=== PATIENT | male | born 1985 | race American Indian/Alaskan Native ===

== ENCOUNTER 2021-01-20 20:06 | Emergency (ER) | payer OTHER ==
[2021-01-20] MEDS ORDERED: Lidocaine 1% with EPINEPHrine 1:100,000 10 ML MDV INJECT ONE (21:08)
--- NOTE | 2021-01-20 21:15 | EDM.PDOC ---
ED HPI GENERAL MEDICAL PROBLEM - General Chief Complaint: Skin Complaint Stated Complaint: LARGE CYST ON NECK Time Seen by Provider: 01/20/21 21:04 Source of Information: Reports: Patient, RN Notes Reviewed History Limitations: Reports: No Limitations - History of Present Illness INITIAL COMMENTS - FREE TEXT/NARRATIVE: Patient is a 35-year-old male who presents to the ER for evaluation of a skin abscess. Patient has a history of this large cyst on the posterior aspect of his right neck. States he used to get injections for this, but they stopped some time ago. States that the lesion has continued to grow, this is the largest is never been. He states that he is never had it drained in the past that it is just always popped open and its drain by itself. He states he has a few chills, and some tenderness about the site but no actual fevers, or any sort of swallowing difficulty or any sort of nausea/vomiting/diarrhea. Patient states he was taking some leftover pain pills given to him by his uncle for pain management. Right Posterior Neck Pain Score (Numeric/FACES): 8 - Related Data Allergies Allergy/AdvReac Type Severity Reaction Status Date / Time cephalexin Allergy Hives Verified 01/20/21 20:35 Iodinated Contrast Media Allergy Swelling Verified 01/20/21 20:35 [Iodinated Contrast- Oral and IV Dye] Home Meds: Home Meds LORazepam [Ativan] 0.5 mg PO TID 03/22/18 [History] Sertraline HCl [Zoloft] 50 mg PO BID 03/22/18 [History] Hydrocodone/Acetaminophen [HYDROcodone-Acetaminophen 5-325 MG] 1 each PO Q6H PRN #12 tablet 01/20/21 [Rx] Insulin Regular, Human [NovoLIN R] 1 unit SUBCUT QID 01/20/21 [History] Sulfamethoxazole/Trimethoprim [Bactrim Ds Tablet] 1 each PO BID #14 tablet 01/20/21 [Rx] lisinopriL [Lisinopril] 40 mg PO DAILY 01/20/21 [History] Past Medical History Gastrointestinal History: Reports: Diverticulosis Psychiatric History: Reports: Anxiety, Depression Endocrine/Metabolic History: Reports: Diabetes, Type II Social & Family History - Family History Endocrine/Metabolic: Reports: Diabetes, type II - Caffeine Use Caffeine Use: Reports: Soda Other Caffeine Use: 2-3 sodas a day ED ROS GENERAL - Review of Systems Review Of Systems: Comprehensive ROS is negative, except as noted in HPI. ED EXAM, SKIN/RASH Exam: See Below Exam Limited By: No Limitations General Appearance: Alert, WD/WN, No Apparent Distress Neck: Other (there is a large grape sized lesion on the right posterior neck that is fluctuant). No: Lymphadenopathy (L), Lymphadenopathy (R) Respiratory/Chest: No Respiratory Distress, Lungs Clear, Normal Breath Sounds, No Accessory Muscle Use, Chest Non-Tender Cardiovascular: Normal Peripheral Pulses, Regular Rate, Rhythm, No Edema Extremities: Normal Inspection, Normal Capillary Refill Neurological: Alert, Oriented, Normal Cognition, No Motor/Sensory Deficits Psychiatric: Normal Affect, Normal Mood Skin: Warm, Dry, Intact, Normal Color, No Rash ED SKIN PROCEDURES - I&D Site: right posterior neck Skin Prep: Chlorhexidine (Hibiciens) Local Anesthesia: Lidocaine: 1% with EPI Area Incised With: 11 Blade Drainage: Purulent, Bloody, Large Amount Probed to Break Up Loculations: Yes Packed With: 1/4 in. Iodoform Course - Vital Signs Last Recorded V/S: Last Vital Signs Temp 96.4 F L 01/20/21 20:30 Pulse 95 01/20/21 20:30 Resp 16 01/20/21 20:30 BP 156/102 H 01/20/21 20:30 Pulse Ox 93 L 01/20/21 20:30 - Orders/Labs/Meds Meds: Medications Discontinued Medications Generic Name Dose Route Start Last Admin Trade Name Nacho PRN Reason Stop Dose Admin Hydrocodone Bitart/Acetaminophen 2 tab 01/20/21 22:18 Acetaminophen/Hydrocodone 325-5 Mg Tab PO 01/20/21 22:19 ONETIME ONE Lidocaine/Epinephrine 10 ml 01/20/21 21:08 Lidocaine 1% With Epinephrine 1:100,000 10 Ml Mdv INJECT 01/20/21 21:09 ONETIME ONE Trimethoprim/Sulfamethoxazole 1 tab 01/20/21 22:18 Sulfamethoxazole/Trimethoprim 800-160 Mg Tab PO 01/20/21 22:19 ONETIME ONE - Re-Assessments/Exams Free Text/Narrative Re-Assessment/Exam: 01/20/21 21:17 Patient presents to the ER for evaluation of a skin lesion. This will need to be incised and drained. Medications have been ordered. Departure - Departure Time of Disposition: 22:20 Disposition: Home, Self-Care 01 Condition: Good Clinical Impression: Skin abscess Qualifiers: Site of cutaneous abscess: neck Qualified Code(s): L02.11 - Cutaneous abscess of neck - Discharge Information *PRESCRIPTION DRUG MONITORING PROGRAM REVIEWED*: Yes *COPY OF PRESCRIPTION DRUG MONITORING REPORT IN PATIENT IKER: No Prescriptions: Sulfamethoxazole/Trimethoprim [Bactrim Ds Tablet] 1 each PO BID #14 tablet Hydrocodone/Acetaminophen [HYDROcodone-Acetaminophen 5-325 MG] 1 each PO Q6H PRN #12 tablet PRN Reason: Pain Instructions: Skin Abscess, [id number] Referrals: PCP,Not In Area [Primary Care Provider] - Forms: ED Department Discharge Additional Instructions: You were evaluated in the ER today for the abscess on your posterior neck. This was incised and drained, and a rather large amount of purulent fluid was drained from the site. The wound was packed with iodoform gauze, to help continue to keep the wound draining. This can be left in place, until Saturday, when you will need to call the clinic for which you live nearest to and have them remove the packing and have them reassess the wound as needed. You may take 500 mg Tylenol or 600 mg ibuprofen every 6 hours as needed for ongoing pain management. Do not exceed 4000 mg Tylenol or 3200 mg ibuprofen in a 24-hour time span. You were given a prescription for a strong pain medication, hydrocodone/acetaminophen 5/325 mg, please take 1 tab every 6 hours as needed for pain not relieved by Tylenol or ibuprofen alone. Please note this medication does contain Tylenol in it, so do not take more than 4000 mg in a 24- hour time span. These medications can be addictive, so please take as few as possible to achieve adequate pain control. These meds can also be quite constipating, recommend that you increase your oral fluid intake and take a stool softener like MiraLAX while taking these medications. Do not drive while taking this medication. You were also given an antibiotic, Bactrim. You will take 1 tablet two times a day for the next week. This medication was electronically sent to the [place] pharmacy located in the [facility] [employer] [facility]. Do not hesitate to return to the ER at any time if symptoms change or worsen. Sepsis Event Note (ED) - Evaluation Sepsis Screening Result: No Definite Risk - Focused Exam Vital Signs: Vital Signs Temp Pulse Resp BP Pulse Ox 01/20/21 20:30 96.4 F L 95 16 156/102 H 93 L
[2021-01-20] MEDS ORDERED: Acetaminophen/HYDROcodone 325-5 MG Tab PO ONE (22:18)
[2021-01-20] MEDS ORDERED: Sulfamethoxazole/Trimethoprim 800-160 MG Tab PO ONE (22:18)
== END 2021-01-20 22:54 | disposition home or self-care (01) ==
LOC: JD.ED 20:06
DX: L02.11 Cutaneous abscess of neck (principal); E11.9 Type 2 diabetes mellitus without complications; Z88.1 Allergy status to other antibiotic agents; Z91.041 Radiographic dye allergy status; Z79.4 Long term (current) use of insulin
CPT/HCPCS: 10060; 99282-25; A9270-GY

== ENCOUNTER 2021-01-22 19:12 | Emergency (ER) | payer OTHER ==
--- NOTE | 2021-01-22 20:31 | EDM.PDOC ---
ED HPI GENERAL MEDICAL PROBLEM - General Chief Complaint: Wound Recheck Stated Complaint: CYST ON NECK Time Seen by Provider: 01/22/21 20:09 Source of Information: Reports: Patient History Limitations: Reports: No Limitations - History of Present Illness INITIAL COMMENTS - FREE TEXT/NARRATIVE: The patient presents for a wound recheck and dressing change. He had an abscess I & D'd 2 days ago. It was packed and he was started on Bactrim. He is back to have it checked and redressed. Onset: Gradual Duration: Day(s): Location: Reports: Neck Quality: Reports: Sharp Severity: Mild Improves with: Reports: None Worsens with: Reports: None Associated Symptoms: Reports: No Other Symptoms Neck Pain Score (Numeric/FACES): 7 - Related Data Allergies Allergy/AdvReac Type Severity Reaction Status Date / Time cephalexin Allergy Hives Verified 01/22/21 20:07 Iodinated Contrast Media Allergy Swelling Verified 01/22/21 20:07 [Iodinated Contrast- Oral and IV Dye] Home Meds: Home Meds LORazepam [Ativan] 0.5 mg PO TID 03/22/18 [History] Sertraline HCl [Zoloft] 50 mg PO BID 03/22/18 [History] Hydrocodone/Acetaminophen [HYDROcodone-Acetaminophen 5-325 MG] 1 each PO Q6H PRN #12 tablet 01/20/21 [Rx] Insulin Regular, Human [NovoLIN R] 1 unit SUBCUT QID 01/20/21 [History] Sulfamethoxazole/Trimethoprim [Bactrim Ds Tablet] 1 each PO BID #14 tablet 01/20/21 [Rx] lisinopriL [Lisinopril] 40 mg PO DAILY 01/20/21 [History] Past Medical History Gastrointestinal History: Reports: Diverticulosis Psychiatric History: Reports: Anxiety, Depression Endocrine/Metabolic History: Reports: Diabetes, Type II Social & Family History - Family History Endocrine/Metabolic: Reports: Diabetes, type II - Caffeine Use Caffeine Use: Reports: Soda Other Caffeine Use: 2-3 sodas a day ED ROS GENERAL - Review of Systems Review Of Systems: See Below Constitutional: Reports: No Symptoms HEENT: Reports: No Symptoms Respiratory: Reports: No Symptoms Cardiovascular: Reports: No Symptoms Endocrine: Reports: No Symptoms GI/Abdominal: Reports: No Symptoms : Reports: No Symptoms Musculoskeletal: Reports: Neck Pain (abscess to the neck) ED EXAM, SKIN/RASH Exam: See Below Exam Limited By: No Limitations General Appearance: Alert, No Apparent Distress Ears: Normal External Exam Nose: Normal Inspection Head: Atraumatic, Normocephalic Neck: Other (Abscess with packing and mild tenderness to the base of the right posterior neck) Respiratory/Chest: No Respiratory Distress Course - Vital Signs Last Recorded V/S: Last Vital Signs Temp 97.4 F 01/22/21 20:07 Pulse 86 01/22/21 20:07 Resp 15 01/22/21 20:07 BP 170/100 H 01/22/21 20:07 Pulse Ox 95 01/22/21 20:07 - Re-Assessments/Exams Free Text/Narrative Re-Assessment/Exam: 01/22/21 20:28 I will leave the packing in for another 3 days and we will redress the wound. From the pictures he showed me before, this looks much better. Departure - Departure Time of Disposition: 20:30 Disposition: Home, Self-Care 01 Condition: Good Clinical Impression: Skin abscess Qualifiers: Site of cutaneous abscess: neck Qualified Code(s): L02.11 - Cutaneous abscess of neck - Discharge Information *PRESCRIPTION DRUG MONITORING PROGRAM REVIEWED*: Not Applicable *COPY OF PRESCRIPTION DRUG MONITORING REPORT IN PATIENT IKER: Not Applicable Referrals: PCP,Not In Area [Primary Care Provider] - Conrad Villalta MD [Physician] - 1 Week Additional Instructions: Keep taking the bactrim as directed. Return in 3 days to have the packing removed. Take tylenol or motrin for any pain. Follow up with Dr Villalta one of our general surgeons in [facility] if you have any more problems. Sepsis Event Note (ED) - Evaluation Sepsis Screening Result: No Definite Risk - Focused Exam Vital Signs: Vital Signs Temp Pulse Resp BP Pulse Ox 01/22/21 20:07 97.4 F 86 15 170/100 H 95
== END 2021-01-22 20:45 | disposition home or self-care (01) ==
LOC: JD.ED 19:12
DX: L02.11 Cutaneous abscess of neck (principal); E11.9 Type 2 diabetes mellitus without complications; Z88.1 Allergy status to other antibiotic agents; Z91.041 Radiographic dye allergy status; Z79.4 Long term (current) use of insulin
CPT/HCPCS: 99282

== ENCOUNTER 2021-01-27 00:41 | Emergency (ER) | payer OTHER ==
[2021-01-27] MEDS ORDERED: Lidocaine 1% 10 ML MDV ONE (01:52)
[2021-01-27] MEDS ORDERED: Lidocaine 1% 10 ML MDV INJECT ONE (02:31)
--- NOTE | 2021-01-27 02:31 | EDM.PDOC ---
ED HPI GENERAL MEDICAL PROBLEM - General Chief Complaint: Wound Recheck Stated Complaint: REMOVE PACKING FROM CYST Time Seen by Provider: 01/27/21 02:05 - History of Present Illness INITIAL COMMENTS - FREE TEXT/NARRATIVE: Patient was seen in ED 01/20/2021 with abscess to the posterolateral right neck Incision and drainage with iodoform packing was performed He was seen in ED 01/22/2021 for recheck of the abscess It was thought to be significantly improved at that time Removal of packing was deferred pending reevaluation in 3 days Patient endorses continued improvement overall Dressings have continued to have slight amount of purulent material He endorses continued occurrence of chills last night - Related Data Allergies Allergy/AdvReac Type Severity Reaction Status Date / Time cephalexin Allergy Hives Verified 01/27/21 01:06 Iodinated Contrast Media Allergy Swelling Verified 01/27/21 01:06 [Iodinated Contrast- Oral and IV Dye] Home Meds: Home Meds LORazepam [Ativan] 0.5 mg PO TID 03/22/18 [History] Sertraline HCl [Zoloft] 50 mg PO BID 03/22/18 [History] Hydrocodone/Acetaminophen [HYDROcodone-Acetaminophen 5-325 MG] 1 each PO Q6H PRN #12 tablet 01/20/21 [Rx] Insulin Regular, Human [NovoLIN R] 1 unit SUBCUT QID 01/20/21 [History] Sulfamethoxazole/Trimethoprim [Bactrim Ds Tablet] 1 each PO BID #14 tablet 01/20/21 [Rx] lisinopriL [Lisinopril] 40 mg PO DAILY 01/20/21 [History] Past Medical History Cardiovascular History: Reports: Hypertension Gastrointestinal History: Reports: Cholelithiasis, Diverticulosis, Fatty Liver Psychiatric History: Reports: Addiction, Anxiety, Depression Endocrine/Metabolic History: Reports: Diabetes, Type II, Hypokalemia Dermatologic History: Reports: Other (See Below) Other Dermatologic History: skin abscess, I & D 01/20/21 Social & Family History - Family History Endocrine/Metabolic: Reports: Diabetes, type II - Tobacco Use Tobacco Use Status *Q: Current Some Day Tobacco User Years of Tobacco use: 18 Packs/Tins Daily: 0.1 - Caffeine Use Caffeine Use: Reports: Coffee Other Caffeine Use: 2-3 sodas a day - Recreational Drug Use Recreational Drug Use: Yes Recreational Drug Type: Reports: Marijuana/Hashish Recreational Drug Use Frequency: Binges ED ROS GENERAL - Review of Systems Review Of Systems: See Below Free Text/Narrative/Comment: Constitutional - no fever; chills Gastrointestinal - no nausea; no vomiting Integumentary - neck lesion/wound ED EXAM, GENERAL - Physical Exam Exam: See Below Free Text/Narrative:: Constitutional - awake; alert; no acute distress Head - no facial swelling or weakness ENT - no nasal deformity; no epistaxis; normal phonation Neck: - extensive scarring present below posterior hairline bilaterally - 2.5-3 cm lesion right, posterolateral aspect of neck below hairline, with iodoform gauze protruding from wound on lateral aspect; no erythema or induration; mild amount of purulent material expressed along iodoform gauze Respiratory - normal respiratory effort Musculoskeletal - grossly normal strength and motion Skin - warm; dry Neurologic - normal speech; no weakness; gait intact Psychiatric - normal mood and affect; memory and attention normal Course - Vital Signs Text/Narrative:: Symptoms and examination were discussed In consideration of stated chills, and purulent material expressed from wound, continuation of packing was felt to be appropriate Configuration of packing with loop drain was discussed and patient provided verbal consent The medial edge of the abscess cavity was infiltrated using lidocaine 1% with epinephrine The old packing material was removed intact An incision was made using #11 scalpel at the anesthetized site Curved hemostats were passed through the original incision, and out through the new incision The end of a sterile rubber tourniquet was placed in the jaws of the hemostat, which was then withdrawn The end of the tourniquet were tightened and not and trimmed The free ends of the knot were then sutured to the loop segment Patient was advised to continue the remaining antibiotic as previously prescribed Care of the loop drain was discussed Removal was advised when drainage is no longer purulent Primary care follow-up was advised Patient was felt to be stable for outpatient follow-up Return precautions were provided Last Recorded V/S: Last Vital Signs Temp 35.8 C L 01/27/21 01:01 Pulse 96 01/27/21 01:01 Resp 20 01/27/21 01:01 BP 149/89 H 01/27/21 01:01 Pulse Ox 97 01/27/21 01:01 - Orders/Labs/Meds Meds: Medications Discontinued Medications Generic Name Dose Route Start Last Admin Trade Name Nacho PRN Reason Stop Dose Admin Lidocaine HCl Confirm 01/27/21 01:52 01/27/21 02:42 Lidocaine 1% 10 Ml Mdv Administered 01/27/21 01:53 Not Given Dose 10 ml .ROUTE .STK-MED ONE Lidocaine HCl 10 ml 01/27/21 02:31 01/27/21 02:39 Lidocaine 1% 10 Ml Mdv INJECT 01/27/21 02:32 10 ml ONETIME ONE Administration Departure - Departure Time of Disposition: 02:24 Disposition: Home, Self-Care 01 Clinical Impression: Encounter for recheck of abscess following incision and drainage - Discharge Information *PRESCRIPTION DRUG MONITORING PROGRAM REVIEWED*: Not Applicable *COPY OF PRESCRIPTION DRUG MONITORING REPORT IN PATIENT IKER: Not Applicable Instructions: Incision and Drainage, Care After Referrals: PCP,None [Primary Care Provider] - Forms: ED Department Discharge Additional Instructions: Return if condition worsens May resume general activity and regular diet as tolerated Continue current antibiotic therapy until completed Change dressing over wound daily, and additionally as needed Wash area gently with soap and water when bathing/showering Warm or hot water during shower may be directed over the area to help with circulation and drainage Pain may be cut and pulled out when wound drainage no longer has pus Follow-up with primary care provider is recommended in 3 to 5 days Sepsis Event Note (ED) - Focused Exam Vital Signs: Vital Signs Temp Pulse Resp BP Pulse Ox 01/27/21 01:01 35.8 C L 96 20 149/89 H 97
== END 2021-01-27 02:43 | disposition home or self-care (01) ==
LOC: JD.ED 00:41
DX: Z48.01 Encounter for change or removal of surgical wound dressing (principal); I10 Essential (primary) hypertension; E11.9 Type 2 diabetes mellitus without complications; Z72.0 Tobacco use; Z91.041 Radiographic dye allergy status; Z88.1 Allergy status to other antibiotic agents; Z79.4 Long term (current) use of insulin; Z79.899 Other long term (current) drug therapy
CPT/HCPCS: 99282

== ENCOUNTER 2021-06-14 19:08 | Emergency (ER) | payer OTHER ==
[2021-06-14] MEDS ORDERED: Bupivacaine 0.5% 10 ML SDV INJECT ONE (20:08)
[2021-06-14] MEDS ORDERED: Lidocaine 1% with EPINEPHrine 1:100,000 10 ML MDV INJECT ONE (20:08)
[2021-06-14] MEDS ORDERED: Sulfamethoxazole/Trimethoprim 800-160 MG Tab PO STA (20:34)
== END 2021-06-14 20:51 | disposition home or self-care (01) ==
LOC: JD.ED 19:08
DX: L02.31 Cutaneous abscess of buttock (principal); I10 Essential (primary) hypertension; E11.9 Type 2 diabetes mellitus without complications; E66.9 Obesity, unspecified; Z88.1 Allergy status to other antibiotic agents; Z91.041 Radiographic dye allergy status; Z79.4 Long term (current) use of insulin; Z79.899 Other long term (current) drug therapy; Z72.0 Tobacco use; Z68.43 Body mass index [BMI] 50.0-59.9, adult
CPT/HCPCS: 10060; 87070; 87075; 87077; 87186; 87205; 99282; A9270; J3490; 99284

== ENCOUNTER 2021-06-17 17:18 | Emergency (ER) | payer OTHER | END 2021-06-17 17:57 | disposition home or self-care (01) | LOC: JD.ED 17:18 | DX: Z48.00 Encounter for change or removal of nonsurgical wound dressing (principal); I10 Essential (primary) hypertension; E11.9 Type 2 diabetes mellitus without complications; E66.9 Obesity, unspecified; K21.9 Gastro-esophageal reflux disease without esophagitis; Z79.4 Long term (current) use of insulin; Z79.899 Other long term (current) drug therapy; Z68.29 Body mass index [BMI] 29.0-29.9, adult; Z88.8 Allergy status to other drugs, medicaments and biological substances | CPT/HCPCS: 99282 ==

== ENCOUNTER 2025-02-20 17:55 | Emergency (ER) | payer OTHER ==
[2025-02-20 19:19] LABS: BASOPHILS ABSOLUTE AUTO 0.1 K/mm3 (0.0-0.2); BASOPHILS PERCENT AUTO 0.7 % (0.0-1.0); EOSINOPHILS ABSOLUTE AUTO 0.1 K/mm3 (0.0-0.4); EOSINOPHILS PERCENT AUTO 0.9 % (0.0-6.0); IMMATURE GRAN ABSOLUTE AUTO 0.06 K/mm3 (0.00-0.05); IMMATURE GRAN PERCENT AUTO 0.4 % (0.0-0.4); LYMPHOCYTES ABSOLUTE AUTO 4.8 K/mm3 (1.0-4.8); LYMPHOCYTES PERCENT AUTO 32.0 % (24.0-44.0); MEAN PLATELET VOLUME 9.9 fl (9.4-12.4); MONOCYTES ABSOLUTE AUTO 0.9 K/mm3 (0.0-0.8); MONOCYTES PERCENT AUTO 5.6 % (0.0-8.0); NEUTROPHILS ABSOLUTE AUTO 9.1 K/mm3 (1.8-7.7); NEUTROPHILS PERCENT AUTO 60.4 % (41.0-71.0); NRBC ABSOLUTE 0.00 (0.00-0.02); NRBC PERCENT 0.0 % (0.0-0.2); PLATELET COUNT,PLT 300 K/mm3 (150-400); RED BLOOD CELL COUNT 6.94 M/mm3 (4.52-5.90); WHITE BLOOD CELL COUNT,WBC 15.11 K/mm3 (3.9-11.3)
[2025-02-20 19:41] LABS: A/G RATIO 0.7 (1-2); ALANINE AMINOTRANSFERASE,ALT 37.0 U/L (16-63); ASPARTATE AMNIOTRANSFERASE,AST 12.0 U/L (15-37); BILIRUBIN TOTAL 0.5 mg/dL (0.2-1.0); BLOOD UREA NITROGEN,BUN 19.0 mg/dL (7-18); CARBON DIOXIDE,CO2 22.0 mEq/L (21-32); CHLORIDE,CL 103.0 mEq/L (98-107); CREATININE 1.0 mg/dL (0.7-1.3); EST CRCL DRUG DOSING (CG) 116.45 mL/min; ESTIMATED GFR 99.0 mL/min (>60); GLUCOSE RANDOM 141.0 mg/dL (70-99); POTASSIUM,K 4.1 mEq/L (3.5-5.1); PROTEIN TOTAL,TP 9.5 g/dl (6.4-8.2); SODIUM,NA 139.0 mEq/L (136-145)
[2025-02-20] MEDS ORDERED: Naloxone 0.4 MG/ML SDV IVPUSH PRN ×2 (21:22→21:34)
[2025-02-21] MEDS: Acetaminophen/oxyCODONE 325-5 MG Tab PO ONE (00:59)
== END 2025-02-21 01:02 | disposition home or self-care (01) ==
LOC: JD.ED 17:55
DX: S70.251A Superficial foreign body, right hip, initial encounter (principal); L05.01 Pilonidal cyst with abscess; E11.9 Type 2 diabetes mellitus without complications; W45.8XXA Other foreign body or object entering through skin, initial encounter; Z88.1 Allergy status to other antibiotic agents; Z91.041 Radiographic dye allergy status; I10 Essential (primary) hypertension; K21.9 Gastro-esophageal reflux disease without esophagitis; E66.9 Obesity, unspecified; Z79.899 Other long term (current) drug therapy; Z79.4 Long term (current) use of insulin
CPT/HCPCS: 10080; 36415; 76882; 80053; 85025; 87040; 87070; 87075; 87205; 96372; 99284; A9270; J2003; J2270; 87077; 87186